=== PATIENT | male | born 1940 | race Caucasian/White ===

== ENCOUNTER → 2016-06-16 | Outpatient (CLI) | payer MEDICARE, BC ==
--- NOTE | 2016-06-16 15:37 | DI ---
INDICATION: ITS.REASON: Z01.818 ENCOUNTER FOR OTHER PROCEDURAL EXAM; M48.06 STENOSIS; I45 PROCEDURE: CHEST 2-VIEWS UPRIGHT (PA \T\ LAT) Encounter: Initial COMPARISON: None FINDINGS: The lungs are clear without evidence of focal abnormal airspace opacity. There is no pleural effusion or pneumothorax. The heart size and pulmonary vascularity are within normal limits. Tortuous thoracic aorta. Mild to moderate degenerative change in the spine. IMPRESSION: No acute cardiopulmonary disease. .
== END ==
LOC: IMA 14:56
PROVIDERS: ATTEND Internal Medicine
DX: Z01.818 Encounter for other preprocedural examination (principal)